=== PATIENT | male | born 1995 | race Caucasian/White ===

== ENCOUNTER 2020-09-03 21:30 | Emergency (ER) | payer BC ==
[2020-09-03 22:14] LABS: CHLORIDE,CL 95 mEq/L (98-106); SODIUM,NA 135 mEq/L (136-145)
[2020-09-03 22:28] VITALS: BP 173/85; PULSE 107
--- NOTE | 2020-09-03 22:28 | EDM.PDOC ---
ED HPI GENERAL MEDICAL PROBLEM - General Chief Complaint: General Stated Complaint: "heart feels funny" Time Seen by Provider: 09/03/20 21:50 Source of Information: Reports: Patient History Limitations: Reports: No Limitations - History of Present Illness INITIAL COMMENTS - FREE TEXT/NARRATIVE: Presents with heart racing and pain from stomach into his back. He states that it has been going on for over a year. He admits that he doesn't eat at regular times or food and if he does eat he vomits frequently. he admits that he hasn't ate in about 3 days. Can't remember what he ate last. He states that he has pain in the upper epigastric area and "my heart hurts" No diaphoresis with it. He is a daily heavy drinker and admits to drinking at least 15 beers today. He doesn't know if the irregular heart rate occurs when he is drinking heavily only. He remembers waking up in the morning and having it. He does take his BP on a regular basis. When he arrived he was tachycardic. Onset: Gradual Duration: Recurring Location: Reports: Chest, Abdomen - Related Data Allergies Allergy/AdvReac Type Severity Reaction Status Date / Time No Known Allergies Allergy Verified 09/03/20 22:28 Home Meds: Home Meds lisinopriL [Lisinopril] 20 mg PO DAILY 09/03/20 [History] Past Medical History HEENT History: Reports: None Other HEENT History: color blind Cardiovascular History: Reports: Hypertension Respiratory History: Reports: None Gastrointestinal History: Reports: None Genitourinary History: Reports: None Musculoskeletal History: Reports: None Neurological History: Reports: None Psychiatric History: Reports: None Endocrine/Metabolic History: Reports: None Hematologic History: Reports: None Social & Family History - Tobacco Use Tobacco Use Status *Q: Never Tobacco User - Caffeine Use Caffeine Use: Reports: Energy Drinks, Soda - Alcohol Use Alcohol Use History: Yes Days Per Week of Alcohol Use: 7 Number of Drinks Per Day: 15 Total Drinks Per Week: 105 Date of Last Drink: 09/03/20 Alcohol Use Frequency: Daily - Recreational Drug Use Recreational Drug Use: No ED ROS GENERAL - Review of Systems Review Of Systems: See Below Constitutional: Denies: Fever, Chills HEENT: Reports: No Symptoms Respiratory: Reports: No Symptoms Cardiovascular: Reports: Chest Pain, Palpitations GI/Abdominal: Reports: Abdominal Pain (mid epigastric.), Vomiting Skin: Reports: No Symptoms Neurological: Denies: Dizziness ED EXAM, GENERAL - Physical Exam Exam: See Below Exam Limited By: No Limitations General Appearance: Alert, WD/WN, Mild Distress Ears: Normal External Exam, Normal Canal, Normal TMs Throat/Mouth: Normal Inspection, Normal Oropharynx Head: Atraumatic, Normocephalic Neck: Normal Inspection, Supple, Non-Tender, Full Range of Motion Respiratory/Chest: No Respiratory Distress, Lungs Clear, Normal Breath Sounds Cardiovascular: Normal Peripheral Pulses, Regular Rate, Rhythm, No Edema, Other (some chest wall tender ness on the left lateral and posterior chest with palpation of chest.) GI/Abdominal: Normal Bowel Sounds, Soft, Tender (to midepigastric area.) Extremities: Normal Inspection, No Pedal Edema, Normal Capillary Refill Neurological: Alert, Oriented Skin Exam: Warm, Dry, Intact Course - Vital Signs Last Recorded V/S: Last Vital Signs Temp 97.8 F 09/03/20 21:45 Pulse 107 H 09/03/20 22:15 Resp 18 09/03/20 22:15 BP 173/85 H 09/03/20 22:15 Pulse Ox 95 09/03/20 22:15 - Orders/Labs/Meds Orders: Active Orders 24 hr Category Date Time Status Ribs 2V w Chest Lt [CR] Stat Exams 09/03/20 21:42 Taken Labs: Laboratory Tests 09/03/20 09/03/20 Range/Units 21:55 21:55 WBC 5.5 (5.0-10.0) 10^3/uL RBC 5.09 (4.50-6.00) 10^6/uL Hgb 16.6 (14.0-18.0) g/dL Hct 45.6 (40.0-54.0) % MCV 89.6 (82.0-94.0) fL MCH 32.6 H (27.0-32.0) pg MCHC 36.4 (33.0-38.0) g/dL RDW Coeff of Romie 11.5 (11.0-15.0) % Plt Count 292 (150-400) 10^3/uL Neut % (Auto) 45.5 (35-85) % Lymph % (Auto) 34.8 (10-55) % [place] % (Auto) 17.2 H (0-16) % Eos % (Auto) 1.6 (0-5) % Baso % (Auto) 0.9 (0-3) % Neut # (Auto) 2.48 (1.80-7.00) 10^3/uL Lymph # (Auto) 1.90 (1.00-4.80) 10^3/uL [place] # (Auto) 0.94 H (0.00-0.80) 10^3/uL Eos # (Auto) 0.09 (0.00-0.45) 10^3/uL Baso # (Auto) 0.05 10^3/uL Sodium 135 L (136-145) mEq/L Potassium 4.4 (3.5-5.0) mEq/L Chloride 95 L (98-106) mEq/L Carbon Dioxide 24 (21-32) mmol/L BUN 5 L D (7-18) mg/dL Creatinine 0.9 (0.7-1.3) mg/dL Est Cr Clr Drug Dosing TNP Estimated GFR (MDRD) > 60 (>=60) mL/min Glucose 90 (75-99) mg/dL Calcium 8.7 (8.4-10.1) mg/dL Magnesium 1.9 (1.8-2.4) mg/dL Creatine Kinase 727 H (35-232) U/L Troponin I < 0.017 (0.00-0.06) ng/mL Ethyl Alcohol 349 H* (0-3) mg/dL - Re-Assessments/Exams Free Text/Narrative Re-Assessment/Exam: 09/03/20 2210 Discussed lab results with pt including alcohol level. Discussed that he is most likely having palpitation due to excessive drinking. will set him up to have 30 day monitor and also echo. Due to the vomiting will start portonix and if not improved he needs to have EGD. He voices understanding of this. Discussed the need to stop drinking as it is going to cause permanent damage to heart and liver. He voices understanding. Departure - Departure Time of Disposition: 22:26 Disposition: Home, Self-Care 01 Condition: Fair Clinical Impression: Palpitations with regular cardiac rhythm Alcohol intoxication Qualifiers: Complication of substance-induced condition: uncomplicated Qualified Code(s): F10.920 - Alcohol use, unspecified with intoxication, uncomplicated - Discharge Information *PRESCRIPTION DRUG MONITORING PROGRAM REVIEWED*: Not Applicable *COPY OF PRESCRIPTION DRUG MONITORING REPORT IN PATIENT MAYUR: Not Applicable Instructions: Binge-Drinking Information, Adult Referrals: PCP,Unknown [Primary Care Provider] - Forms: ED Department Discharge Additional Instructions: xray will call tomorrow with time to do echo and hook you up to monitor continue normal activity while on monitor continue on same BP meds. start Protonix 40 mg daily for your stomach. If the vomiting does not improve then needs to have EGD in the future Sepsis Event Note (ED) - Evaluation Sepsis Screening Result: Possible Sepsis Risk - Focused Exam Vital Signs: Vital Signs Temp Pulse Resp BP Pulse Ox 09/03/20 22:15 107 H 18 173/85 H 95 09/03/20 22:00 99 26 H 138/91 H 95 09/03/20 21:45 97.8 F 97 28 H 143/95 H 95 09/03/20 21:30 97.8 F 99 24 H 164/104 H 95 - Problem List & Annotations (1) Palpitations with regular cardiac rhythm SNOMED Code(s): 936656749 Code(s): R00.2 - PALPITATIONS Status: Acute Priority: High Current Visit: Yes (2) ETOH abuse SNOMED Code(s): 75226002 Code(s): F10.10 - ALCOHOL ABUSE, UNCOMPLICATED Status: Acute Priority: High Current Visit: No (3) Alcohol intoxication SNOMED Code(s): 74596694 Code(s): F10.929 - ALCOHOL USE, UNSPECIFIED WITH INTOXICATION, UNSPECIFIED Status: Acute Priority: High Current Visit: Yes Qualifiers: Complication of substance-induced condition: uncomplicated Qualified Code(s): F10.920 - Alcohol use, unspecified with intoxication, uncomplicated - Problem List Review Problem List Initiated/Reviewed/Updated: Yes - My Orders Last 24 Hours: My Active Orders 09/03/20 21:42 Ribs 2V w Chest Lt [CR] Stat - Assessment/Plan Last 24 Hours: My Active Orders 09/03/20 21:42 Ribs 2V w Chest Lt [CR] Stat
== END 2020-09-03 22:33 | disposition home or self-care (01) ==
LOC: CC.ED 21:30
DX: R00.2 Palpitations (principal); F10.120 Alcohol abuse with intoxication, uncomplicated; Y90.8 Blood alcohol level of 240 mg/100 ml or more; I10 Essential (primary) hypertension; Z79.899 Other long term (current) drug therapy
CPT/HCPCS: 36415; 71046; 71100-LT; 71101-LT; 80048; 80307; 82550; 83735; 84484; 85025; 93005; 99285-25